=== PATIENT | male | born 1955 | race African-American/Black ===

== ENCOUNTER → 2017-11-04 | Outpatient (CLI) | payer OTHER ==
[~2017-11-04] MED LIST: ACETAMINOPHEN500 M1 PO; ATROVENT 00.5 MG/2.5 IH; BUCALSEP SPRAY30 ML MM; FLOVENT HFA PO; MEDROLPACK PO; OMEGA 3 1,0001 EACH; OSEL75CA PO; PROVENTIL3 ML/2.5 M IH; VENTOLIN HFA18 GM IH; XOPENEX0.63 MG/3 IH; ZANTAC300 MG PO; ZYRTEC10 MG PO
== END | disposition home or self-care (01) ==
LOC: PPHC 15:10
DX: Z01.89 Encounter for other specified special examinations (principal); Z00.8 Encounter for other general examination

== ENCOUNTER → 2017-11-19 | Outpatient (CLI) | payer OTHER | END | disposition home or self-care (01) | LOC: LAB 09:27 | DX: R51 Headache (principal); E78.4 Other hyperlipidemia; I10 Essential (primary) hypertension ==

== ENCOUNTER 2017-11-23 12:12 | Outpatient (CLI) | payer OTHER | END 2017-11-23 15:40 | disposition home or self-care (01) | LOC: RAD 12:12 | DX: J45.41 Moderate persistent asthma with (acute) exacerbation (principal) ==

== ENCOUNTER 2017-11-23 13:40 | Outpatient (CLI) | payer OTHER | END 2017-11-23 13:49 | disposition home or self-care (01) | LOC: SONOGRAMA 13:40 | DX: D21.0 Benign neoplasm of connective and other soft tissue of head, face and neck (principal) ==

== ENCOUNTER → 2017-12-15 06:36 | Outpatient (CLI) | payer OTHER | END | disposition home or self-care (01) | LOC: LAB 06:36 | DX: D21.0 Benign neoplasm of connective and other soft tissue of head, face and neck (principal); Z01.812 Encounter for preprocedural laboratory examination ==

== ENCOUNTER 2017-12-30 05:00 | Day surgery (SDC) | payer OTHER | END 2017-12-30 09:55 | disposition home or self-care (01) | LOC: CIR.AMB 05:00 | DX: D17.0 Benign lipomatous neoplasm of skin and subcutaneous tissue of head, face and neck (principal) ==

== ENCOUNTER 2018-09-29 07:47 | Outpatient (CLI) | payer OTHER | END 2018-09-29 07:57 | disposition home or self-care (01) | LOC: LAB 07:47 | DX: D64.89 Other specified anemias (principal); N39.0 Urinary tract infection, site not specified; R10.9 Unspecified abdominal pain; E03.8 Other specified hypothyroidism; E78.49 Other hyperlipidemia; R07.89 Other chest pain; R80.8 Other proteinuria; R73.09 Other abnormal glucose; E11.9 Type 2 diabetes mellitus without complications ==

== ENCOUNTER 2019-05-06 07:16 | Outpatient (CLI) | payer OTHER | END 2019-05-06 13:56 | disposition home or self-care (01) | LOC: LAB 07:16 | DX: Z13.6 Encounter for screening for cardiovascular disorders (principal); I10 Essential (primary) hypertension; N39.0 Urinary tract infection, site not specified; E11.9 Type 2 diabetes mellitus without complications; Z79.01 Long term (current) use of anticoagulants; E03.8 Other specified hypothyroidism; E78.49 Other hyperlipidemia ==

== ENCOUNTER 2019-11-16 08:34 | Outpatient (CLI) | payer OTHER | END 2019-11-16 08:40 | disposition home or self-care (01) | LOC: LAB 08:34 | DX: I25.10 Atherosclerotic heart disease of native coronary artery without angina pectoris (principal); E78.49 Other hyperlipidemia; D64.89 Other specified anemias; N39.0 Urinary tract infection, site not specified; R10.84 Generalized abdominal pain; E03.8 Other specified hypothyroidism; E11.9 Type 2 diabetes mellitus without complications ==

== ENCOUNTER 2019-11-16 11:31 | Outpatient (CLI) | payer OTHER | END 2019-11-16 11:35 | disposition home or self-care (01) | LOC: LAB 11:31 | DX: J11.1 Influenza due to unidentified influenza virus with other respiratory manifestations (principal); R05 Cough ==

== ENCOUNTER 2020-02-15 09:01 | Outpatient (CLI) | payer OTHER ==
[~2020-02-15] VITALS: Ht 172.7 cm; Wt 77.1 kg
[2020-02-15] MEDS ORDERED: NEO-POLYMYXYIN-10 ML OTIC (09:46)
== END 2020-02-15 10:07 | disposition home or self-care (01) ==
LOC: OFIC 805 09:01
PROVIDERS: ATTEND Otolaryngology
DX: H92.01 Otalgia, right ear (principal); H61.23 Impacted cerumen, bilateral

== ENCOUNTER 2020-02-22 07:18 | Outpatient (CLI) | payer OTHER ==
[~2020-02-22 07:18] MED LIST changes: +NEO-POLYMYXYIN-10 ML OTIC
== END 2020-02-22 07:20 | disposition home or self-care (01) ==
LOC: NUCLEAR 07:18
PROVIDERS: ATTEND Internal Medicine Cardiovascular Disease
DX: I11.9 Hypertensive heart disease without heart failure (principal); I25.10 Atherosclerotic heart disease of native coronary artery without angina pectoris
CPT/HCPCS: 78452; 93017; A9500; J0153

== ENCOUNTER → 2020-02-29 | Outpatient (CLI) | payer OTHER | END | disposition home or self-care (01) | LOC: OFIC 805 09:09 | PROVIDERS: ATTEND Otolaryngology | DX: H92.01 Otalgia, right ear (principal); H61.23 Impacted cerumen, bilateral ==

== ENCOUNTER 2020-05-02 06:32 | Outpatient (CLI) | payer OTHER | END 2020-05-02 06:37 | disposition home or self-care (01) | LOC: LAB 06:32 | PROVIDERS: ATTEND Internal Medicine Cardiovascular Disease | DX: I10 Essential (primary) hypertension (principal); E11.9 Type 2 diabetes mellitus without complications; E03.8 Other specified hypothyroidism; E78.2 Mixed hyperlipidemia; Z12.11 Encounter for screening for malignant neoplasm of colon; N40.0 Benign prostatic hyperplasia without lower urinary tract symptoms ==

== ENCOUNTER 2020-05-02 10:37 | Outpatient (CLI) | payer OTHER | END 2020-05-02 11:00 | disposition home or self-care (01) | LOC: OFIC 805 10:37 | PROVIDERS: ATTEND Otolaryngology | DX: H61.23 Impacted cerumen, bilateral (principal) ==

== ENCOUNTER 2020-05-06 09:23 | Outpatient (CLI) | payer OTHER | END 2020-05-06 15:00 | disposition home or self-care (01) | LOC: LAB 09:23 | PROVIDERS: ATTEND Internal Medicine Cardiovascular Disease | DX: E11.9 Type 2 diabetes mellitus without complications (principal); E03.8 Other specified hypothyroidism; I10 Essential (primary) hypertension; E78.2 Mixed hyperlipidemia; Z12.11 Encounter for screening for malignant neoplasm of colon; N40.0 Benign prostatic hyperplasia without lower urinary tract symptoms ==

== ENCOUNTER 2020-06-19 06:20 | Outpatient (CLI) | payer OTHER | END 2020-06-19 15:00 | disposition home or self-care (01) | LOC: LAB 06:20 | PROVIDERS: ATTEND Urology | DX: N40.0 Benign prostatic hyperplasia without lower urinary tract symptoms (principal); R31.1 Benign essential microscopic hematuria; N28.89 Other specified disorders of kidney and ureter ==

== ENCOUNTER 2020-06-19 07:35 | Outpatient (CLI) | payer OTHER | END 2020-06-19 07:44 | disposition home or self-care (01) | LOC: SONOGRAMA 07:35 → MAMO-SONO 08:45 | PROVIDERS: ATTEND Physical Medicine & Rehabilitation | DX: M25.511 Pain in right shoulder (principal); N43.2 Other hydrocele ==

== ENCOUNTER → 2020-07-17 08:51 | Outpatient (CLI) | payer OTHER | END | disposition home or self-care (01) | LOC: LAB 08:51 | PROVIDERS: ATTEND Physical Medicine & Rehabilitation | DX: R05 Cough (principal); R50.9 Fever, unspecified; Z03.818 Encounter for observation for suspected exposure to other biological agents ruled out ==

== ENCOUNTER → 2020-09-21 07:41 | Outpatient (CLI) | payer OTHER ==
[~2020-09-21 07:41] MED LIST changes: +ADULT LOW DOSE81 M1 PO; +DILTIAZEM ER60 MG PO; +LIPITOR40 M1 PO; +PEPCID AC20 MG PO
== END | disposition home or self-care (01) ==
LOC: LAB 07:41
PROVIDERS: ATTEND Internal Medicine Cardiovascular Disease
DX: I10 Essential (primary) hypertension (principal); E11.9 Type 2 diabetes mellitus without complications; E03.8 Other specified hypothyroidism; E78.2 Mixed hyperlipidemia; E55.9 Vitamin D deficiency, unspecified

== ENCOUNTER 2020-09-25 07:08 | Outpatient (CLI) | payer OTHER ==
[~2020-09-25 07:08] MED LIST changes: -ADULT LOW DOSE81 M1 PO; -DILTIAZEM ER60 MG PO; -LIPITOR40 M1 PO; -PEPCID AC20 MG PO
[2020-09-27] MEDS ORDERED: LIPITOR40 M1 PO (08:07)
[2020-09-27] MEDS ORDERED: ADULT LOW DOSE81 M1 PO (08:07)
[2020-09-27] MEDS ORDERED: DILTIAZEM ER60 MG PO (08:08)
[2020-09-27] MEDS ORDERED: PEPCID AC20 MG PO (08:08)
== END 2020-09-25 07:19 | disposition home or self-care (01) ==
LOC: LAB 07:08
PROVIDERS: ATTEND Internal Medicine Cardiovascular Disease
DX: R05 Cough (principal); Z20.828 Contact with and (suspected) exposure to other viral communicable diseases; R50.9 Fever, unspecified; N39.0 Urinary tract infection, site not specified; D68.8 Other specified coagulation defects; R06.2 Wheezing; I10 Essential (primary) hypertension; J44.9 Chronic obstructive pulmonary disease, unspecified

== ENCOUNTER → 2020-10-04 | Day surgery (SDC) | payer OTHER ==
[~2020-10-04] MED LIST changes: +ADULT LOW DOSE81 M1 PO; +DILTIAZEM ER60 MG PO; +LIPITOR40 M1 PO; +PEPCID AC20 MG PO
== END | disposition home or self-care (01) ==
LOC: ADM 09-27 07:00 → CIR.AMB 06:07
PROVIDERS: ATTEND Urology
DX: N43.2 Other hydrocele (principal); Z20.828 Contact with and (suspected) exposure to other viral communicable diseases

== ENCOUNTER → 2020-11-05 06:15 | Outpatient (CLI) | payer OTHER | END | disposition home or self-care (01) | LOC: LAB 06:15 | PROVIDERS: ATTEND Internal Medicine Cardiovascular Disease | DX: D64.89 Other specified anemias (principal); N39.0 Urinary tract infection, site not specified; E78.49 Other hyperlipidemia; Z13.6 Encounter for screening for cardiovascular disorders ==

== ENCOUNTER 2021-04-05 07:31 | Outpatient (CLI) | payer OTHER | END 2021-04-05 07:32 | disposition home or self-care (01) | LOC: LAB 07:31 | PROVIDERS: ATTEND Internal Medicine Cardiovascular Disease | DX: D64.89 Other specified anemias (principal); N39.0 Urinary tract infection, site not specified; R10.84 Generalized abdominal pain; E03.8 Other specified hypothyroidism; E78.49 Other hyperlipidemia; E55.9 Vitamin D deficiency, unspecified; I10 Essential (primary) hypertension; I25.118 Atherosclerotic heart disease of native coronary artery with other forms of angina pectoris; E88.2 Lipomatosis, not elsewhere classified ==

== ENCOUNTER 2021-12-17 20:28 | Emergency (ER) | payer OTHER ==
[~2021-12-17] VITALS: Ht 172.7 cm; Wt 74.8 kg
[2021-12-18] MEDS ORDERED: CARDIZEM CD180 M1 PO (03:03)
== END 2021-12-18 03:29 ==
LOC: ER 20:28
DX: U07.1 COVID-19 (principal); I10 Essential (primary) hypertension; Z88.2 Allergy status to sulfonamides

== ENCOUNTER 2022-04-21 07:57 | Outpatient (CLI) | payer OTHER ==
[~2022-04-21 07:57] MED LIST changes: +CARDIZEM CD180 M1 PO
== END 2022-04-21 15:20 | disposition home or self-care (01) ==
LOC: LAB 07:57
PROVIDERS: ATTEND Internal Medicine Cardiovascular Disease
DX: I10 Essential (primary) hypertension (principal); E11.9 Type 2 diabetes mellitus without complications; E03.9 Hypothyroidism, unspecified; E78.2 Mixed hyperlipidemia; N40.0 Benign prostatic hyperplasia without lower urinary tract symptoms; E55.9 Vitamin D deficiency, unspecified

== ENCOUNTER 2022-09-04 06:38 | Outpatient (CLI) | payer OTHER | END 2022-09-04 07:28 | disposition home or self-care (01) | LOC: LAB 06:38 | PROVIDERS: ATTEND Internal Medicine Cardiovascular Disease | DX: I10 Essential (primary) hypertension (principal); E78.2 Mixed hyperlipidemia ==

== ENCOUNTER → 2022-10-23 06:19 | Outpatient (CLI) | payer OTHER | END | disposition home or self-care (01) | LOC: LAB 06:19 | PROVIDERS: ATTEND Specialist | DX: J44.9 Chronic obstructive pulmonary disease, unspecified (principal); J45.50 Severe persistent asthma, uncomplicated ==

== ENCOUNTER 2023-02-26 06:49 | Outpatient (CLI) | payer OTHER | END 2023-02-26 06:53 | disposition home or self-care (01) | LOC: LAB 06:49 | PROVIDERS: ATTEND Internal Medicine Cardiovascular Disease | DX: I10 Essential (primary) hypertension (principal); E11.9 Type 2 diabetes mellitus without complications; E78.2 Mixed hyperlipidemia; Z12.11 Encounter for screening for malignant neoplasm of colon; N40.0 Benign prostatic hyperplasia without lower urinary tract symptoms ==

== ENCOUNTER 2023-04-09 11:08 | Outpatient (CLI) | payer OTHER | END 2023-04-09 11:14 | disposition home or self-care (01) | LOC: RAD 11:08 | DX: M25.561 Pain in right knee (principal); M25.521 Pain in right elbow ==